=== PATIENT | male | born 1960 | race African-American/Black ===

== ENCOUNTER 2019-12-11 17:02 | Emergency (ER) | payer OTHER ==
[~2019-12-11] VITALS: Ht 185.4 cm; Wt 122.5 kg
[2019-12-11] MEDS ORDERED: OXYBUTYNIN 5 MG5 M2 PO (17:16)
[2019-12-11] MEDS ORDERED: HYDROCHLOROTHIA25 M1 PO (17:16)
[2019-12-11] MEDS ORDERED: NORVASC10 MG PO (17:17)
[2019-12-11] MEDS ORDERED: ZESTRIL40 MG PO (17:18)
[2019-12-11] MEDS ORDERED: KLOR-CON M2020 MEQ PO (17:18)
[2019-12-11] MEDS ORDERED: FEXOFENADINE-P1 EACH PO (17:18)
[2019-12-11] MEDS ORDERED: LITE COAT ASPI325 MG PO (17:19)
[2019-12-11] MEDS ORDERED: TERAZOSIN HCL10 MG PO (17:19)
[2019-12-11 17:31] LABS: URINE BILIRUBIN NEGATIVE (Negative); URINE BLOOD 3+ (Negative); URINE COLOR YELLOW; URINE GLUCOSE-RANDOM* NEGATIVE (Negative); URINE KETONES NEGATIVE (Negative); URINE LEUKOCYTES-REFLEX 1+ (Negative); URINE NITRITE-REFLEX NEGATIVE (Negative); URINE PROTEIN (DIPSTICK) 2+ (Negative); URINE SPECIFIC GRAVITY 1.025 (1.005-1.035); URINE UROBILINOGEN 0.2 E.U./dl (0.2-1.0)
[2019-12-11 17:32] LABS: URINE CLARITY CLOUDY
[2019-12-11 17:36] LABS: SQUAMOUS 4-10 Moderate /LPF (0-3); URINE RBC >20 Many /HPF (0-2); URINE WBC-REFLEX 6-15 Few /HPF (0-5)
[2019-12-11 17:37] LABS: BACTERIA-REFLEX 1-9 Few /HPF (None Seen); CRYSTALS None Seen /LPF (None Seen)
[2019-12-11 17:44] LABS: ABSOLUTE NEUTROPHILS 11.1 thou/uL (1.4-8.2); BASOPHILS 0.3 % (0.0-2.0); HEMATOCRIT 36.1 % (42.0-52.0); HEMOGLOBIN 11.8 gm/dL (14.0-18.0); LYMPHOCYTES 8.3 % (24.0-44.0); MCHC 32.8 g/dL (28.0-37.0); MCV 82.3 fL (80.0-100.0); MONOCYTES 7.5 % (1.0-8.0); PLATELET COUNT 210 thou/uL (150-400); POLYS 83.9 % (36.0-66.0); RBC 4.38 mil/uL (4.50-6.00); RDW 15.4 % (10.5-14.5); WBC 13.2 thou/uL (4.0-11.0)
[2019-12-11 17:51] LABS: CALCIUM 9.2 mg/dL (8.5-10.1); CREATININE 1.7 mg/dL (0.7-1.3); POTASSIUM 3.8 mmol/L (3.5-5.1)
[2019-12-11] MEDS ORDERED: KEFLEX500 M1 PO (18:56)
[2019-12-11 19:15] VITALS: BP 141/77
== END 2019-12-11 19:16 | disposition still patient (30) ==
LOC: ER 17:02
PROVIDERS: Emergency Medicine
DX: N30.01 Acute cystitis with hematuria (principal); I10 Essential (primary) hypertension; J45.909 Unspecified asthma, uncomplicated; Z86.2 Personal history of diseases of the blood and blood-forming organs and certain disorders involving the immune mechanism; Z88.8 Allergy status to other drugs, medicaments and biological substances